=== PATIENT | male | born 1995 | race Caucasian/White ===

== ENCOUNTER 2016-07-21 21:44 | Emergency (ER) | payer OTHER ==
[2016-07-21] MEDS ORDERED: KETOROLAC 30 MG/ML VIAL ONE (23:00)
[2016-07-21] MEDS ORDERED: SODIUM CHLORIDE 0.9% 1,000 ML ONE (23:00)
[2016-07-21] MEDS ORDERED: DICYCLOMINE 20MG/2ML VIAL IM ONE (23:00)
[2016-07-22] MEDS ORDERED: DIPHENHYDRAMINE 50 MG/ML VIAL ONE (00:23)
[2016-07-22] MEDS ORDERED: SODIUM CHLORIDE 0.9% 0 ML ONE (00:24)
[2016-07-22] MEDS ORDERED: PROMETHAZINE 25 MG/ML VIAL ONE (00:24)
== END 2016-07-22 00:50 | disposition home or self-care (01) ==
LOC: ER 21:44
DX: R19.7 Diarrhea, unspecified (principal)
CPT/HCPCS: 36415; 80053; 81003; 83690; 85025; 96361; 96372; 96374; 99285; J0500; J1885